=== PATIENT | male | born 1980 | race Caucasian/White ===

== ENCOUNTER 2022-07-04 14:59 | Emergency (ER) | payer BC, SELFPAY ==
[2022-07-04 15:02] VITALS: BP 148/91; PULSE 70; RESP 18; TEMP 35.8; O2SAT 96; BMI 35.3
[2022-07-04 15:54] LABS: Lactate* 1.1 mmol/L (0.5-1.9)
[2022-07-04] MEDS: KETOROLAC 15 MG/ML inj IVP (15:56)
--- NOTE | 2022-07-04 16:14 | ED_ITS ---
HPI - General Adult General Date Seen: 07/04/22 Chief complaint: Extremity Pain/Injury, Lower Stated complaint: Possible left knee infection, fever of 102 Time Seen by Provider: 07/04/22 15:05 Source: patient History of Present Illness HPI narrative: Patient is a 41-year-old male who says his left knee has been bothering him for a couple of days. He thought he maybe had just twisted it playing with his nieces and nephews, crawling around on the floor. However, he has developed some swelling, and today he says he was feeling warm while at work, he checked his temperature and says it was 102. He tells me has a history several years ago of a septic knee requiring washout. I asked him if there was any determination of how he ended up with a septic knee and he says it was related to having gout. He says he is on colchicine which he sometimes forgets to take. He has had other gout flare since then but typically in small joints such as his toe. He has not had much trouble with his knee since 2017. He denies other significant medical history other than hypertension and high cholesterol. He is not on any immunosuppressive medications and does not have history of diabetes. No specific trauma to the knee. He denies other symptoms related to the fever such as sore throat, ear pain, upper respiratory symptoms. Related Data Home Medications Medication Instructions Recorded Confirmed colchicine 0.6 mg tablet 0.6 mg PO BID 07/04/22 07/04/22 paroxetine HCl 30 mg tablet 30 mg PO HS 07/04/22 07/04/22 Allergies Allergy/AdvReac Type Severity Reaction Status Date / Time No Known Drug Allergies Allergy Verified 07/04/22 15:08 Review of Systems Status of ROS: Reports: 10 or more systems reviewed and unremarkable except as noted in History and below Exam Narrative: Exam Narrative: Vital signs as noted above. In general, an alert, well-appearing patient. Head: Normocephalic, atraumatic. Eyes: Pupils are equal reactive. Extraocular movements are full. Conjunctivae are normal. ENT: Mucous membranes are moist. Throat is normal. Neck: Supple without lymphadenopathy. Heart: Regular rate and rhythm. No murmur or rub. Lungs: Clear bilaterally. No increased work of breathing, crackles or wheezes. Abdomen: Soft and nontender. No organomegaly. Extremities: Well perfused. No edema. No calf tenderness. Pulses intact. On the left, the knee is very faintly erythematous but minimally so. He has a [id number] effusion. He has good range of motion with pain that develops at about 100? of flexion. He has full extension. Minimal warmth. Mild diffuse tenderness around the knee. Neurologic: Patient is alert and oriented to person and place. Speech is fluent. Face is symmetric. Moves all extremities equally. Affect: Normal. Skin: Warm and dry. Well perfused. Const: Vital Signs, click to edit/add: Vital Signs - 24 hr 07/04/22 15:02 07/04/22 16:30 07/04/22 18:00 Temperature 96.4 F L Pulse Rate [Right Pulse Oximeter] 70 92 87 Respiratory Rate 18 Blood Pressure [Ri ght Upper Arm] 148/91 H 132/89 118/90 H Pulse Oximetry 96 95 96 Oxygen Delivery Me thod Room Air Room Air Room Air 07/04/22 17:00 Temperature Pulse Rate [Right Pulse Oximeter] 86 Respiratory Rate Blood Pressure [Ri ght Upper Arm] 132/88 Pulse Oximetry 97 Oxygen Delivery Me thod Room Air Documenting provider has reviewed patient's vital signs: yes Course Course Hospital Course: Patient is afebrile and nontoxic appearing here. He does have an effusion and mild tenderness but has fairly good range of motion of the knee. Overall, his clinical presentation is not overly suggestive of a septic joint, but he does describe a fever at home and gives a history of it the joint. In review of his records, it is a little bit difficult to tell exactly whether he had a septic joint previously or not. He was hospitalized, put on antibiotics, ultimately went to the OR for a washout period was felt intraoperatively to more likely have gout, pending cultures. It looks like the initial culture from admission was negative, but then the 2nd culture presumably from the OR grew out Enterococcus faecalis. I am not able to tell from the records whether the final determination was gout verses gout plus septic arthritis. He did have monosodium urate crystals in the synovial fluid. For now, I have recommended that we do get a sample joint fluid send that to the lab. He has had an IV placed, given Toradol and will send off labs for CBC, inflammatory markers. I have also recommended that we get a viral swab to look for other possible causes for fever. Procedure note: The left knee was prepped sterilely, I infiltrated with a small amount of lidocaine without epinephrine as we are out of stock of lidocaine with epinephrine. I used a 19 gauge needle and aspirated 10 mL to sent to the lab. I pulled an additional approximately 20 mL of fluid off of the joint just for comfort. Fluid is cloudy and yellow, although not frankly purulent. He tolerated as well. A bandage is applied. No immediate complications. Synovial fluid returned showing 70,000 white blood cells, 95% PMNs. Certainly the cell counts are somewhat concerning, they are similar to what he had last time he was in the hospital. I did discuss this with Dr. Charles, who was kind enough to see him in the ER as well. I the appearance of the synovial fluid, patient's knee continues to look very non concerning. Now that the effusion is down, he has excellent range of motion and minimal pain. Dr. Charles feels it is reasonable to see how he does as an outpatient. He will see him in clinic in follow-up in a couple of days and if at anytime he is worsening he can always come back to the ER. Cultures are pending. In terms of other labs, his white blood cell count was mildly elevated at 13. CRP was 4.2. Viral swab was negative. Crystal id and g stain is pending. Patient is comfortable with all this. I have asked him to use ibuprofen as needed, he declines the need for anything stronger for pain. I am going to stay away from prednisone right now while we are awaiting cultures. Appointment is made for follow-up on with Dr. Charles, return in the interim for any worsening. Vital Signs Vital signs: Initial Vital Signs Temperature 96.4 F L 07/04/22 15:02 Temperature Source Temporal Artery Scan 07/04/22 15:02 Pulse Rate 70 07/04/22 15:02 Respiratory Rate 18 07/04/22 15:02 Blood Pressure 148/91 H 07/04/22 15:02 Blood Pressure Mean 110 07/04/22 15:02 Blood Pressure Position Sitting 07/04/22 15:02 Pulse Oximetry 96 07/04/22 15:02 Oxygen Delivery Method 07/04/22 15:02 Vital Signs Temperature 96.4 F L 07/04/22 15:02 Pulse Rate 70 07/04/22 15:02 Respiratory Rate 18 07/04/22 15:02 Blood Pressure 148/91 H 07/04/22 15:02 Pulse Oximetry 96 07/04/22 15:02 Oxygen Delivery Method 07/04/22 15:02 Temperature 96.4 F L 07/04/22 15:02 Pulse Rate 87 07/04/22 18:00 Respiratory Rate 18 07/04/22 15:02 Blood Pressure 118/90 H 07/04/22 18:00 Pulse Oximetry 96 07/04/22 18:00 Oxygen Delivery Method 07/04/22 18:00 Medical Decision Making Lab Data Labs: Lab Results 07/04/22 07/04/22 07/04/22 Range/Units 15:30 15:45 15:45 WBC 13.10 H (4.50-11.00) K/uL RBC 4.91 (4.30-5.90) m/uL Hgb 13.8 (13.5-17.5) gm/dL Hct 40.8 (37.0-53.0) % MCV 83 (80-100) fL MCH 28 (26-34) pg MCHC 34 (32-36) gm/dL RDW Coeff of [place] 12.5 (11.5-15.5) % Plt Count 221 (140-440) K/uL Neut % (Auto) 75.0 H (42.0-72.0) % Lymph % (Auto) 17.3 L (20-44) % [place] % (Auto) 7.1 (0.0-11.0) % Eos % (Auto) 0.2 (0.0-7.0) % Baso % (Auto) 0.2 (0.0-3.0) % Neut # (Auto) 9.80 H (1.7-7.0) K/uL Lymph # (Auto) 2.30 (0.90-2.90) K/uL [place] # (Auto) 0.90 (0.00-0.90) K/UL Eos # (Auto) 0.00 (0.00-0.50) K/uL Baso # (Auto) 0.00 (0.00-0.30) K/uL Lactate (0.5-1.9) mmol/L C-Reactive Protein 4.2 H (0.5-1.0) mg/dL Fluid Volume 10 Fluid Color Xanthochromic A Fluid Appearance Slightly Cloudy A Fluid WBC 41928 Cells/uL Fluid RBC 3000 Cells/uL Fluid Polynuclear WBCs 95 % Fluid Mononuclear WBCs 6 % SARS-CoV-2 (PCR) (Negative) Influenza Type A (PCR) (Negative) Influenza Type B (PCR) (Negative) RSV (PCR) (Negative) 07/04/22 07/04/22 Range/Units 15:45 15:45 WBC (4.50-11.00) K/uL RBC (4.30-5.90) m/uL Hgb (13.5-17.5) gm/dL Hct (37.0-53.0) % MCV (80-100) fL MCH (26-34) pg MCHC (32-36) gm/dL RDW Coeff of [place] (11.5-15.5) % Plt Count (140-440) K/uL Neut % (Auto) (42.0-72.0) % Lymph % (Auto) (20-44) % [place] % (Auto) (0.0-11.0) % Eos % (Auto) (0.0-7.0) % Baso % (Auto) (0.0-3.0) % Neut # (Auto) (1.7-7.0) K/uL Lymph # (Auto) (0.90-2.90) K/uL [place] # (Auto) (0.00-0.90) K/UL Eos # (Auto) (0.00-0.50) K/uL Baso # (Auto) (0.00-0.30) K/uL Lactate 1.1 (0.5-1.9) mmol/L C-Reactive Protein (0.5-1.0) mg/dL Fluid Volume Fluid Color Fluid Appearance Fluid WBC Cells/uL Fluid RBC Cells/uL Fluid Polynuclear WBCs % Fluid Mononuclear WBCs % SARS-CoV-2 (PCR) Negative SARS-CoV-2 (Negative) Influenza Type A (PCR) Negative PCR FLU A (Negative) Influenza Type B (PCR) Negative PCR FLU B (Negative) RSV (PCR) Negative PCR RSV (Negative) Discharge Plan Discharge Clinical Impression: Gout of left knee Patient Disposition: Home, Self-Care Condition: Improved Instructions: Gout (ED) Additional Instructions: Ibuprofen 400 mg plus or minus Tylenol 1000 mg as needed 3 times daily for pain. Ice as needed. Ortho follow-up as scheduled. If at any time you feel you are worsening, have worsening redness, severe pain, inability to move your knee, return to the emergency department. We will call you if cultures are positive. Prescriptions: No Action paroxetine HCl 30 mg tablet 30 mg PO HS Label Comments: TAKE 1 TABLET (30 MG) BY MOUTH AT BEDTIME colchicine 0.6 mg tablet 0.6 mg PO BID Label Comments: TAKE 1 TABLET (0.6MG) BY MOUTH TWICE DAILY Follow Up/Referrals: Provider,Not a Local [Primary Care Provider] - Stand Alone Forms: [employer] Info Instructions
[2022-07-04 16:30] VITALS: BP 132/89; PULSE 92; O2SAT 95
[2022-07-04 16:32] LABS: Mononuclear WBC Body Fluid* 6 %; Polynuclear WBC Body Fluid* 95 %; RBC, Body Fluid* 3000 Cells/uL; WBC, Body Fluid* 70227 Cells/uL
[2022-07-04 16:37] LABS: C Reactive Protein* 4.2 mg/dL (0.5-1.0)
[2022-07-04 16:38] LABS: BF Clarity* Slightly Cloudy; BF Color Xanthochromic; BF Total Volume* 10
[2022-07-04 16:43] LABS: PCR FLU A Negative PCR FLU A (Negative); PCR FLU B Negative PCR FLU B (Negative); PCR RSV Negative PCR RSV (Negative)
[2022-07-04 16:49] LABS: Basophils Percent Auto 0.2 % (0.0-3.0); Eosinophils Percent Auto 0.2 % (0.0-7.0); Hematocrit 40.8 % (37.0-53.0); Hemoglobin* 13.8 gm/dL (13.5-17.5); Immature Granulocytes Pct Auto 0.2 %; Lymphocytes Percent Auto 17.3 % (20-44); Mean Corpuscular HGB Conc 34 gm/dL (32-36); Mean Corpuscular Hemoglobin 28 pg (26-34); Mean Corpuscular Volume 83 fL (80-100); Monocytes Percent Auto 7.1 % (0.0-11.0); Platelet Count* 221 K/uL (140-440); RDW Coefficient of Variation % 12.5 % (11.5-15.5); Red Blood Count 4.91 m/uL (4.30-5.90)
[2022-07-04 16:58] LABS: SARS PCR* Negative SARS-CoV-2 (Negative)
[2022-07-04 17:00] VITALS: BP 132/88; PULSE 86; O2SAT 97
[2022-07-04 17:03] LABS: Slide Review Reflex No
[2022-07-04 18:00] VITALS: BP 118/90; PULSE 87; O2SAT 96
== END 2022-07-04 18:19 | disposition home or self-care (01) ==
PROVIDERS: Emergency Provider Emergency Medicine
DX: M10.9 Gout, unspecified (principal)
CPT/HCPCS: 20610; 36415; 83605; 85025; 86140; 87070; 87205; 87502; 87634; 87635; 89051; 89060; 96374; 99283; 99284; J1885

== ENCOUNTER 2022-12-22 13:37 | Outpatient (CLI) | payer BC, SELFPAY | END 2022-12-22 13:38 | disposition home or self-care (01) | PROVIDERS: PCP Orthopaedic Surgery; Visit Provider Family Medicine | DX: Z00.00 Encounter for general adult medical examination without abnormal findings (principal); I10 Essential (primary) hypertension; E78.00 Pure hypercholesterolemia, unspecified; E55.9 Vitamin D deficiency, unspecified; F41.9 Anxiety disorder, unspecified; Z11.59 Encounter for screening for other viral diseases; Z13.6 Encounter for screening for cardiovascular disorders | CPT/HCPCS: 80053; 80061; 86803 ==

== ENCOUNTER 2024-08-29 12:52 | Outpatient (CLI) | payer BC, SELFPAY | END 2024-08-29 12:53 | disposition home or self-care (01) | PROVIDERS: PCP Family Medicine; Visit Provider Family Medicine | DX: I10 Essential (primary) hypertension (principal); E55.9 Vitamin D deficiency, unspecified; R73.03 Prediabetes; E78.00 Pure hypercholesterolemia, unspecified; M10.9 Gout, unspecified; F41.9 Anxiety disorder, unspecified | CPT/HCPCS: 80053; 80061; 82043; 82306; 82570; G0103 ==

== ENCOUNTER 2025-04-30 10:38 | Outpatient (CLI) | payer BC, SELFPAY | END 2025-04-30 10:39 | disposition home or self-care (01) | PROVIDERS: PCP Family Medicine; Visit Provider Family Medicine | DX: E55.9 Vitamin D deficiency, unspecified (principal); I10 Essential (primary) hypertension; K76.0 Fatty (change of) liver, not elsewhere classified; R73.03 Prediabetes | CPT/HCPCS: 80053; 82306; 84550; 86140 ==

== ENCOUNTER 2025-05-01 14:15 | Outpatient (CLI) | payer BC, SELFPAY | END 2025-05-01 14:16 | disposition home or self-care (01) | LOC: NFLDREF 05-05 06:32 | PROVIDERS: PCP Family Medicine; Referring Provider Family Medicine; Visit Provider Physician Assistant Surgical | DX: M25.462 Effusion, left knee (principal); M25.562 Pain in left knee | CPT/HCPCS: 87070; 87075; 87205; 89051; 89060 ==